=== PATIENT | male | born 1950 | race Caucasian/White ===

== ENCOUNTER → 2018-04-30 | Outpatient (CLI) | payer BC ==
[~2018-04-30] VITALS: Ht 167.6 cm; Wt 88.9 kg
[~2018-04-30] MED LIST: LEVAQUIN 5500 MG/TA1 PO; TUSS PO; ZITHROMAX Z PA250 MG PO
[2018-04-30 13:14] VITALS: BP 136/75; PULSE 61
[2018-04-30 15:07] VITALS: BP 158/100; PULSE 61
[2018-04-30 15:20] VITALS: BP 151/92; PULSE 56
== END ==
LOC: COL.RAD 12:45
DX: M54.16 Radiculopathy, lumbar region (principal)
CPT/HCPCS: J3301

== ENCOUNTER → 2018-07-31 | Outpatient (CLI) | payer BC ==
[~2018-07-31] VITALS: Ht 167.6 cm; Wt 89.0 kg
[~2018-07-31] MED LIST changes: +ALEVE 220MG220 MG PO
[2018-07-31 07:17] VITALS: BP 146/77; PULSE 66
--- NOTE | 2018-07-31 07:31 | NUR ---
called ct to let them know pt is ready
[2018-07-31 08:26] VITALS: BP 151/96; PULSE 70
--- NOTE | 2018-07-31 08:47 | NUR ---
went over dc instructions again. pt able to stand and move about the room without pain or difficulty. pt states no pain or tingling at this time. pt was taken to pov in wheelchair.
== END ==
LOC: COL.RAD 06:30
DX: M54.16 Radiculopathy, lumbar region (principal)
CPT/HCPCS: J3301